=== PATIENT | female | born 1990 | race Two or more races ===

== ENCOUNTER 2021-01-16 22:39 | Emergency (ER) | payer OTHER ==
[~2021-01-16] VITALS: Ht 160 cm; Wt 84.8 kg
[2021-01-16] MEDS ORDERED: PROMETRIUM200 MG (22:47)
== END 2021-01-17 02:20 ==
LOC: ER 22:39
DX: O46.8X1 Other antepartum hemorrhage, first trimester (principal); Z3A.01 Less than 8 weeks gestation of pregnancy

== ENCOUNTER 2021-02-14 15:32 | Emergency (ER) | payer OTHER ==
[~2021-02-14] VITALS: Ht 160 cm; Wt 82.6 kg
[~2021-02-14 15:32] MED LIST: PROMETRIUM200 MG
== END 2021-02-14 19:12 | disposition home or self-care (01) ==
LOC: ER 15:32
DX: O20.9 Hemorrhage in early pregnancy, unspecified (principal); Z3A.09 9 weeks gestation of pregnancy

== ENCOUNTER 2021-03-14 13:40 | Outpatient (CLI) | payer OTHER | END 2021-03-14 14:40 | disposition home or self-care (01) | LOC: PRENATAL 13:40 | PROVIDERS: ATTEND Obstetrics & Gynecology Maternal & Fetal Medicine | DX: Z36.89 Encounter for other specified antenatal screening (principal); O36.80X1 Pregnancy with inconclusive fetal viability, fetus 1; Z3A.14 14 weeks gestation of pregnancy ==

== ENCOUNTER 2021-04-16 12:24 | Inpatient (IN) | payer OTHER ==
[~2021-04-16] VITALS: Ht 160 cm; Wt 83.5 kg
[2021-04-16] MEDS ORDERED: PRENATAL CAPLE1 EAC1 PO (13:16)
== END 2021-04-22 15:04 | disposition home or self-care (01) | DRG 832 ==
LOC: LDR 12:24 → OB/GYN 04-17 12:34
PROVIDERS: ADMIT Specialist; ATTEND Specialist
PROC: BY4CZZZ Ultrasonography of Second Trimester, Single Fetus (ICD-10-PCS; principal; 2021-04-16)
PROC: BW40ZZZ Ultrasonography of Abdomen (ICD-10-PCS; 2021-04-16)
PROC: BU46ZZZ Ultrasonography of Uterus (ICD-10-PCS; 2021-04-16)
DX: O23.02 Infections of kidney in pregnancy, second trimester (principal); N39.0 Urinary tract infection, site not specified; O23.42 Unspecified infection of urinary tract in pregnancy, second trimester; Z3A.18 18 weeks gestation of pregnancy; O99.612 Diseases of the digestive system complicating pregnancy, second trimester

== ENCOUNTER 2021-05-02 08:24 | Outpatient (CLI) | payer OTHER ==
[~2021-05-02 08:24] MED LIST changes: +PRENATAL CAPLE1 EAC1 PO
== END 2021-05-02 09:34 | disposition home or self-care (01) ==
LOC: PRENATAL 08:24
PROVIDERS: ATTEND Obstetrics & Gynecology Maternal & Fetal Medicine
DX: O35.0XX1 Maternal care for (suspected) central nervous system malformation in fetus, fetus 1 (principal); O35.3XX1 Maternal care for (suspected) damage to fetus from viral disease in mother, fetus 1; O98.512 Other viral diseases complicating pregnancy, second trimester; Z36.89 Encounter for other specified antenatal screening; Z3A.20 20 weeks gestation of pregnancy

== ENCOUNTER 2021-08-29 11:45 | Inpatient (IN) | payer OTHER ==
[~2021-08-29] VITALS: Ht 160 cm; Wt 95.7 kg
[2021-09-05] MEDS ORDERED: IBUPROFEN800 MG PO (08:18)
== END 2021-09-05 10:25 | disposition home or self-care (01) | DRG 788 ==
LOC: O/R 09-02 06:08 → SURG-SUITE 09-02 06:08 → OB/GYN 09-02 11:45 → SURG-SUITE 09-02 12:24
PROVIDERS: ADMIT Specialist; ATTEND Specialist
PROC: 4A1HXCZ Monitoring of Products of Conception, Cardiac Rate, External Approach (ICD-10-PCS; 2021-09-02)
PROC: 10D00Z1 Extraction of Products of Conception, Low, Open Approach (ICD-10-PCS; principal; 2021-09-02 07:15)
DX: O34.211 Maternal care for low transverse scar from previous cesarean delivery (principal); Z3A.38 38 weeks gestation of pregnancy; Z37.0 Single live birth; Z20.822 Contact with and (suspected) exposure to COVID-19